=== PATIENT | female | born 1955 | race Caucasian/White ===

== ENCOUNTER 2019-04-19 07:43 | Outpatient (CLI) | payer MEDICARE, BC, SELFPAY ==
--- NOTE | 2019-04-19 08:09 | CT_ITS ---
WS: [id number] CT scan of the chest without IV contrast, additional two-dimensional coronal and sagittal reconstruct ion was performed. 04/19/2019 Clinical Data: PNEUMONIA Comparison: PA and lateral chest, 02/27/2019 DLP: 904.[address] scans at [facility] use at least one of these dose optimization techniques: automat ed exposure control; mA and/or kV adjustment per patient size (includes targeted exams where dose is matched to clinical indication); or iterative reconstruction. Findings: No nodules, masses or effusions are seen. Minimal coronary artery calcification is present. The heart size is normal with no pericardial effusion. The pulmonary arterial system and thoracic aorta demons trate no abnormalities or dilatations. There is no axillary or significant mediastinal adenopathy. No pneumonia or pneumothorax is present. There is a large hiatal hernia. The upper abdomen shows no abnormalities. The bones of the thorax show only minimal osteoarthritic change of the thoracic vertebral bodies. CT/CT chest [facility] [id number] Impression: Negative CT scan of the chest without IV contrast.
== END 2019-04-19 07:44 | disposition home or self-care (01) ==
LOC: RADWPI 07:50
PROVIDERS: Family Provider Family Medicine; PCP Family Medicine; Visit Provider Electrodiagnostic Medicine
DX: J18.9 Pneumonia, unspecified organism (principal)
CPT/HCPCS: 71250

== ENCOUNTER 2019-04-21 09:22 | Inpatient (IN) | payer MEDICARE, BC, SELFPAY ==
[2019-04-21] VITALS (18 sets, daily range): BP systolic 100–160; BP diastolic 59–85; PULSE 18–94; RESP 16–20; TEMP 36.8–37.3; O2SAT 92–100; BMI 31.9
--- NOTE | 2019-04-21 09:48 | ED_ITS ---
Entered by Shon Schwarz, acting as scribe for Zunilda Espinosa DO HPI - Chest Pain General: Chief Complaint: Chest Pain Stated Complaint: chest pains/sob Time Seen by Provider: 04/21/19 09:48 History of Present Illness: HPI narrative: 63 yo female presents with chest pain and shortness of breath. Pt states that she has had shortness of breath for awhile. Pt states that she has had a cold since Thanksiving. Pt states that she can't get dressed without becoming short of breath and have to sit down. pt states that she had a CT done Monday, and an Xray done last month. Pt states that her PCP gave her an inhaler for this issue. Pt states that her inhaler seems to help with the shortness of breath. Pt states that she is out of her inhaler for about a week. Pt states that her legs and feet seem to be swelling more. MD complaint: chest pain Associated symptoms: Reports dyspnea; Deny abdominal pain, diaphoresis, fever(s), nausea, palpitations or vomiting Review of Systems Const: Reports: fatigue; Denies: fever, chills, body aches, change in appetite, change in weight, malaise, night sweats, diaphoresis or change in sleep pattern Eyes: Denies: change in vision, blurry vision, blind spots, photophobia, eye discomfort, eye discharge, eye redness or yellow eyes ENMT: Denies: throat pain, uvular edema, enlarged tonsils or painful swallowing Card: Reports: edema, swelling of feet/ankles and shortness of breath on exertion; Denies: chest pain, palpitations or irregular heart rhythm Resp: Reports: shortness of breath GI: Denies: abdominal pain, nausea, vomiting, vomiting blood, coffee grounds in vomit, difficulty swallowing, heartburn/indigestion, feeling full early, diarrhea, constipation, bloating, cramping, belching or excessive passing of gas : Denies: flank pain, difficulty urinating, painful urination, urinary frequency, urinary urgency, urinary hesitancy, urinary dribbling, nighttime urination, decreased urine ouput or urinary incontinence Musc: Denies: neck pain, back pain, extremity pain, extremity swelling or joint pain Skin/Breast: Denies: rash, itching, redness, sensitivity to light, skin pain or skin tenderness Neuro: Denies: headache, numbness in extremities, weakness in extremities, changes in sensation, lack of coordination or difficulty walking Psych: Denies: anxiety, depression, mood swings, panic attacks or sleeping less Endo: Denies: excessive urination, excessive thirst, tired all the time or cold intolerance Corey/Lymph: Denies: easy bruising, easy bleeding, petechiae or purpura PFSH ED PFSH: Statuses (acute, chronic, etc) shown below reflect problem list status as previously entered and may not be historically accurate Medical History (Updated 04/21/19 @ 11:47 by Zunilda Espinosa DO) Hypercholesterolemia (Acute) Thyroid disease (Acute) Surgical History (Updated 04/21/19 @ 10:01 by Shon Schwarz) H/O knee surgery (Acute) H/O: hysterectomy (Acute) Social History Smoking and tobacco status: never smoked Physical Exam Const: COMMON NORMALS: no apparent distress, average body habitus, oriented x3 and alert EXAM LIMITATIONS: no altered mental status GENERAL APPEARANCE: cooperative and well kempt ORIENTATION/CONSCIOUSNESS: Yes awake, Yes oriented to person, Yes oriented to place and Yes oriented to time; not confused HENMT: COMMON NORMALS: normocephalic HEAD & SCALP: normal to inspection and normocephalic THROAT: no uvular edema Eye: COMMON NORMALS: PERRL PUPIL: Yes PERRL Neck/C-Spine: COMMON NORMALS: full ROM, no lymphadenopathy, supple and no JVD Lymph: LYMPHATIC: no lymphadenopathy noted Chest: COMMONS NORMALS: inspection of chest normal Resp: COMMON NORMALS: normal respiratory effort and clear to auscultation bilaterally AUSCULTATION: clear to auscultation bilaterally Cardio: COMMON NORMALS: no JVD, regular rate and regular rhythm RATE: regular rate RHYTHM: regular rhythm GI: COMMON NORMALS: soft to palpation and non-tender PALPATION: Yes soft : COMMON NORMALS: Yes no CVA tenderness BLADDER/KIDNEY EXAM: Yes no CVA tenderness Back/Pelvis: COMMON NORMALS: no CVA tenderness Extremity: COMMON NORMALS: normal to inspection and full ROM Neuro: COMMON NORMALS: oriented x3 SENSORIUM/ORIENTATION: Yes alert, Yes oriented to person, Yes oriented to place and Yes oriented to time Psych: COMMON NORMALS: mental status grossly normal APPEARANCE: Yes well kempt Skin: COMMON NORMALS: no rashes or lesions noted GENERAL SKIN EXAM: no rashes or lesions noted Course ED course: Patient and family placed in room 16, patient asymptomatic on exam. Reports extreme shortness of breath trying to get ready for latter-day today. Lab, CXR and EKG obtained. We also obtained her CT report dated 04/19/2019 . Her lab reveal a hgb of 7, she was unaware that her hgb was that low, she had been told in the past she was anemic. She reported a normal colonoscopy about 1 and 1/2 years ago. She denied black stools. She has been eating chicken livers to increase her iron I discussed the patient with Dr Malone we will admit to observation, collect stool guaiac, initiate ferrous sulfate po. Vital Signs: Vital signs: Vital Signs Temperature 98.2 F 04/21/19 09:33 Pulse Rate 94 04/21/19 09:33 Respiratory Rate 16 04/21/19 09:33 Blood Pressure 133/85 04/21/19 09:33 Pulse Oximetry 94 04/21/19 09:33 MDM - Chest Pain Lab Data: Labs: Lab Results 04/21/19 04/21/19 04/21/19 Range/Units 10:12 10:12 10:12 WBC 5.8 (4.0-10.0) 10^3/ uL RBC 3.32 L (4.1-5.3) 10^6/u L Hgb 7.0 L (11.5-15.3) g/dL Hct 24.4 L (37.0-47.0) % MCV 73.5 L (81-99) fL MCH 21.1 L (28.0-34.0) pg MCHC 28.7 L (30.0-36.0) g/dL RDW 16.1 H (12.1-15.1) % Plt Count 395 (130-400) 10^3/c mm MPV 10.1 (7.4-10.4) fL Neut % (Auto) 62.9 % Lymph % (Auto) 24.0 % [place] % (Auto) 10.2 % Eos % (Auto) 1.7 % Baso % (Auto) 0.9 % Neut # (Auto) 3.6 (1.8-7.7) 10^3/u L Lymph # (Auto) 1.4 (0.8-4.8) 10^3/u L [place] # (Auto) 0.6 (0.2-0.9) 10^3/u L Eos # (Auto) 0.1 (0.0-0.8) 10^3/u L Baso # (Auto) 0.1 (0.0-0.1) 10^3/u L Nucleated RBC % (a uto) 0 % Nucleated RBCs # 0.0 /100WBC Sodium 137 (136-145) mmol/L Potassium 4.1 (3.5-5.1) mmol/L Chloride 102 (98-107) mmol/L Carbon Dioxide 23 (22-29) mmol/L Anion Gap 16.1 (5-19) BUN 14 (8-23) mg/dL Creatinine 1.0 H (0.5-0.9) mg/dL GFR Calculation 55.6 L (90-130) mL/min Glucose 111 (65-115) mg/dL Calcium 9.7 (8.5-10.5) mg/dL Total Bilirubin 0.3 (0.15-1.2) mg/dL AST 16 (0-32) U/L ALT 19 (0-33) U/L Alkaline Phosphata se 80 (35-105) IU/L Troponin T Baselin e 17 H (0-10) ng/mL NT-Pro-B Natriuret Pep 59 (0-125) pg/mL Total Protein 6.9 (6.6-8.7) g/dL Albumin 4.3 (3.5-5.2) g/dL Globulin 2.6 (1.3-4.6) g/dL Lipase 30 (13-60) U/L EKG Data^: EKG 1: Attestation: I personally reviewed and interpreted this EKG as follows: EKG interpretation date: 04/21/19 EKG interpretation time: 09:56 Interpretation: Normal axis vent rate 92 bpm, sinus rhythm, no st depression/elevation Discharge Plan Discharge Patient Disposition: Placed in Observation Clinical Impression: Anemia Qualifiers: Anemia type: iron deficiency Iron deficiency anemia type: other iron deficiency Qualified Code(s): D50.8 - Other iron deficiency anemias Condition: Stable Referrals: Jimbo Murray MD [Primary Care Provider] - Coding Level of Care Code ED Car Deliverer for Chg Fwd Exam Problem Focused The documentation recorded by the Chong krishna Kialy, accurately reflects the service I personally performed and the decisions made by me, Zunilda Espinosa, DO
--- NOTE | 2019-04-21 09:54 | ECG_ITS ---
Measurements Intervals [place] Rate: 92 P: 20 [place]: 120 QRS: 50 QRSD: 89 T: 20 QT: 336 QTc: 417 SINUS RHYTHM No previous ECG available for comparison Electronically Signed On 04-21-2019 22:23:17 TOOL CRIB CLERK by Flor Olvera M.D. [email or web address]
--- NOTE | 2019-04-21 09:54 | XR_ITS ---
WS: [id number] ONE VIEW CHEST HISTORY: 63 years old Female with chest pain AP upright chest comparison 02/27/2019 FINDINGS: No pneumothorax, pleural effusion, consolidation/atelectasis. Heart size and pulmonary markings are u nremarkable. Moderate hiatal hernia. No subdiaphragmatic free air. No fracture seen. XR/XR chest 1V portable [id number] IMPRESSION: 1. No acute cardiopulmonary findings. 2. Unchanged moderate hiatal hernia.
[2019-04-21 10:25] LABS: Basophils # 0.1 10^3/uL (0.0-0.1); Basophils % 0.9 %; Eosinophils # 0.1 10^3/uL (0.0-0.8); Eosinophils % 1.7 %; Hematocrit 24.4 % (37.0-47.0); Lymphocytes # 1.4 10^3/uL (0.8-4.8); Mean Corpuscular HGB Conc 28.7 g/dL (30.0-36.0); Mean Corpuscular Hemoglobin 21.1 pg (28.0-34.0); Mean Corpuscular Volume 73.5 fL (81-99); Mean Platelet Volume 10.1 fL (7.4-10.4); Monocytes # 0.6 10^3/uL (0.2-0.9); Monocytes % 10.2 %; Neutrophils # 3.6 10^3/uL (1.8-7.7); Neutrophils % 62.9 %; Nucleated Red Blood Cells % 0 %; Platelet Count 395 10^3/cmm (130-400); Red Blood Count 3.32 10^6/uL (4.1-5.3); Red Cell Distribution Width 16.1 % (12.1-15.1); White Blood Count 5.8 10^3/uL (4.0-10.0)
[2019-04-21] MEDS: sodium chloride 0.9% 500 ML 999 ML IV (10:33)
[2019-04-21 10:47] LABS: Troponin(5th) Baseline 17 ng/mL (0-10)
[2019-04-21 10:56] LABS: Alanine Aminotransferase 19 U/L (0-33); Albumin Level 4.3 g/dL (3.5-5.2); Alkaline Phosphatase 80 IU/L (35-105); Anion Gap 16.1 (5-19); Aspartate Amino Transferase 16 U/L (0-32); Blood Urea Nitrogen 14 mg/dL (8-23); Calcium 9.7 mg/dL (8.5-10.5); Carbon Dioxide 23 mmol/L (22-29); Chloride 102 mmol/L (98-107); Globulin 2.6 g/dL (1.3-4.6); Glomerular Filtration Rate 55.6 mL/min (90-130); Glucose 111 mg/dL (65-115); Lipase 30 U/L (13-60); NT Pro B Type Natriuretic Pept 59 pg/mL (0-125); Potassium 4.1 mmol/L (3.5-5.1); Sodium 137 mmol/L (136-145); Total Bilirubin 0.3 mg/dL (0.15-1.2); Total Protein 6.9 g/dL (6.6-8.7)
--- NOTE | 2019-04-21 11:54 | ECG_ITS ---
Measurements Intervals [place] Rate: 73 P: 21 ID: [id number] QRS: 18 QRSD: 93 T: -4 QT: 366 QTc: 405 SINUS RHYTHM NONSPECIFIC T-WAVE ABNORMALITY No previous ECG available for comparison Electronically Signed On 04-21-2019 22:25:48 HOUSE DESIGNER by Flor Olvera M.D. [id number]
[2019-04-21 12:22] LABS: Troponin 5 2HR 21.61 ng/mL (0-10); Troponin 5 2HR Delta 4.61 ABS# (0-10)
--- NOTE | 2019-04-21 13:58 | PM.HP ---
Providers/Chief Complaint Admitting Physician: Wayne James MD Primary Care Provider: Jimbo Murray MD Chief Complaint: chest pains/sob History of Present Illness Sunshine Katz is a 63 year old female with past medical history of hypercholesterolemia, hypothyroidism, anemia who presents to the ER today with worsening shortness of breath, tiredness for last 2 months acutely worsened over last 2 weeks. Patient states for last 2 weeks she gets out of breath along with dizziness and palpitations even when she is trying to dress herself. She states she had a recent blood work done at her PCPs office which showed she was anemic but she is not really sure what is her hemoglobin numbers at that time. She is not aware of her baseline hemoglobin. Denies of having bleeding in her bowel movements, hematemesis, melena, hematochezia, epistaxis. She states she had a colonoscopy last year and it was reported normal. She is on baby aspirin at home and takes some [id number] pain medications once or twice a week. She denies of having any heartburn, nausea, changes in her bowel movement, flulike symptoms, chest pain, loss of consciousness, falls, orthopnea, paroxysmal nocturnal dyspnea, swelling in her lower limbs. But does complain has been having occasional cough for which she had a CT chest done earlier this week. At present she denies of having any fever, runny nose, PND. Review of Systems Const: Denies: fever, chills, body aches, change in appetite, malaise, night sweats, diaphoresis, change in sleep pattern, daytime sleepiness or snoring Eyes: Denies: change in vision, blurry vision, photophobia, eye discomfort or eye discharge ENMT: Denies: throat pain, enlarged tonsils, hoarseness, mouth pain, oral sores/lesions, dry mouth, tinnitus, nasal congestion or post nasal drip Card: Reports: palpitations, lightheadedness and shortness of breath on exertion; Denies: chest pain, irregular heart rhythm, edema, swelling of feet/ankles, syncope, pre-syncope, shortness of breath when lying down, leg pain with exertion or bluish discoloration of hands/feet Resp: Reports: shortness of breath and non-productive cough; Denies: productive cough, wheezing, stridor, pain on inspiration, change in phlegm color, coughing up blood or chest congestion GI: Denies: abdominal pain, nausea, vomiting, vomiting blood, coffee grounds in vomit, difficulty swallowing, heartburn/indigestion, diarrhea, constipation, bloating, cramping, change in bowel habits, painful bowel movements, blood in stool or black tarry stool : Denies: flank pain, painful urination, urinary frequency, urinary urgency, urinary hesitancy, nighttime urination or blood in urine Musc: Denies: neck pain, back pain, extremity pain, joint pain, joint swelling, redness, joint stiffness or limited range of motion Neuro: Denies: headache, numbness in extremities, weakness in extremities, changes in sensation, lack of coordination, difficulty walking, frequent falls, dizziness, vertigo, confusion, slurred speech, difficulty communicating thoughts or seizure-like activity Psych: Denies: anxiety, depression, mood swings, panic attacks, hopelessness or irritability Endo: Denies: excessive urination, excessive thirst, tired all the time, cold intolerance, excessive sweating, flushing or heat intolerance Corey/Lymph: Denies: easy bruising or easy bleeding All/Imm: Denies: tongue swelling, facial swelling or acute wheezing Medications/Allergies Home Medications Medication Instructions Recorded Confirmed Last Taken Type albuterol sulfate 2 puff INHALATION Q4H PRN 04/21/19 04/21/19 04/21/19 History aspirin 81 mg PO DAILY 04/21/19 04/21/19 04/21/19 History atorvastatin 20 mg PO DAILY 04/21/19 04/21/19 04/21/19 History citalopram 40 mg PO DAILY 04/21/19 04/21/19 04/21/19 History levothyroxine 50 mcg PO DAILY 04/21/19 04/21/19 04/21/19 History Allergies Allergy/AdvReac Type Severity Reaction Status Date / Time No Known Allergies Allergy Verified 04/21/19 09:38 PFSH Acute PFSH: Statuses (acute, chronic, etc) shown below reflect problem list status as previously entered and may not be historically accurate Medical History (Updated 04/21/19 @ 14:03 by Wayne James MD) Hypercholesterolemia (Acute) Thyroid disease (Acute) Surgical History (Updated 04/21/19 @ 10:01 by Shon Schwarz) H/O knee surgery (Acute) H/O: hysterectomy (Acute) Social History (Updated 04/21/19 @ 14:02 by Wayne James MD) Smoking and tobacco status: never smoked Alcohol intake: never Substance/Drug Use: never Household members: family Housing: House Vitals/I&O/Wt Last Vital Signs Temp 98.5 F 04/21/19 13:09 Pulse 86 04/21/19 13:09 Resp 18 04/21/19 13:09 BP 160/79 04/21/19 13:09 Pulse Ox 100 04/21/19 13:09 Weight last 48 hrs Weight 84.368 kg Physical Exam Narrative: EXAM NARRATIVE: General: No acute distress, AO x3, pallor present HEENT: PERRLA, pupils bilaterally equal and reactive Chest: Normal vesicular breath sounds, no added sounds, equal good air entry bilaterally CVS: S1-S2 regular, no murmurs, no tachycardia, no gallops, no rubs Abdomen: Soft, mild epigastric tender, no organomegaly, bowel sounds present Neuro: No focal deficits, no facial deformity, AO x3, power 5/5 in all limbs Data : 04/21/19 10:12 04/21/19 10:12 A&P Assessment and plan (1) Anemia: Status: Acute Qualifiers: Anemia type: iron deficiency Iron deficiency anemia type: other iron deficiency Qualified Code(s): D50.8 - Other iron deficiency anemias Code(s): D64.9 - Anemia, unspecified (2) Hypercholesterolemia: Status: Acute Code(s): E78.00 - Pure hypercholesterolemia, unspecified (3) Thyroid disease: Status: Acute Code(s): E07.9 - Disorder of thyroid, unspecified (4) Shortness of breath: Status: Acute Code(s): R06.02 - Shortness of breath Additional A&P Information Shortness of breath/dizziness: Most likely due to anemia. Hemoglobin today 7. We do not have any baseline hemoglobin in the system. We will check iron panel. We will transfuse 1 unit of PRBC in view of symptomatic anemia. We will check vitamin B12 and folic acid levels. Stool for occult blood check. If she is having stool for occult blood positive will consult surgery for possible colonoscopy and endoscopy. Protonix 40 mg daily. We will hold off on aspirin for now. proBNP negative. Troponins at baseline 17, at 2 hours 21 with a delta of 4 which is not significant. In view of severe symptoms with hemoglobin of 7 patient would most likely need cardiac stress test as an outpatient to rule out cardiac ischemia. At present patient does not have any symptoms suggestive of active ACS. Continue with home dose of levothyroxine and atorvastatin. Full code Regular diet. SCDs for DVT prophylaxis. No pharmacological DVT prophylaxis in view of severe anemia. Attestations Medical Necessity Statement*: Needs admission for most likely less than 2 midnights for symptomatic anemia. Time Spent in Patient Care: 16 - 35 minutes Coding Level of Care Code Acute Ergonomics Engineer for Chg Fwd Diagnoses Anemia D50.8 Anemia type: iron deficiency Iron deficiency anemia type: other iron deficiency Hypercholesterolemia E78.00 Thyroid disease E07.9 Shortness of breath R06.02
--- NOTE | 2019-04-21 15:02 | PC.CHAP ---
Pastoral Care Encounter/Spiritual Assessment Type of Contact [] Declined acoustical tile drill press operator visit [] Patient/Family/Request visit [] Outpatient visit [] Follow-up visit [] Physician referral [] Code/Alert [] Routine visit [] Staff referral [] Actively dying [] Patient sleeping [] Family support [] [] Out of room [] Palliative care [] [] Receiving care in room [] Pre-surgical visit [] Trauma [] Long length of stay [] ICU visit [] Other: Relational/Emotional Strength [] Patient feels connected with others/family/visitors/staff [] Distress [] Loneliness/isolation [] Abandonment Spirituality of Patient [] Person of [place] [] Attends Yarsani of their [place] [] Believes in Prayer [] Reads Bible or Buddhism materials [] There are Spiritual issues to be addressed Enterprise Project Manager Interventions [] Prayer [] Active listening [] Non-anxious presence [] Spiritual/emotional support [] Crisis/trauma care [] Spiritual counseling [] Bereavement support [] Provided bereavement packet [] Provided Bible/devotional materials [] Provided toy/stuffed animal, coloring book to patient or family member [] Provided Communion [] Anointing/[place] [] Salvation [] Completed spiritual assessment [] Other: Impact on Illness or Injury [] Angry [] Fearful [] Anxious [] Often cries [] Exhaustion [] Unable to work [] Unable to attend muslim [] Unable to walk/stand [] Unable to read [] Unable to drive [] Unable to eat/drink [] Unable to sleep [] Unable to be with family [] Patient intubated [] Other: Summary Time spent with patient
[2019-04-21 15:04] LABS: Iron 14 ug/dL (37-145); Percent Saturation 3.6 % (20-50); Thyroid Stimulating Hormone 1.63 uIU/mL (0.27-4.20); Total Iron Binding Capacity 379 mcg/dl; Unsaturated Iron Binding 365 ug/dL (112-347); Vitamin B12 358 pg/mL (232-1245)
--- NOTE | 2019-04-21 15:54 | ECG_ITS ---
Measurements Intervals [place] Rate: 73 P: 15 [place]: 161 QRS: 12 QRSD: 90 T: -4 QT: 384 QTc: 426 SINUS RHYTHM NONSPECIFIC T-WAVE ABNORMALITY No previous ECG available for comparison Electronically Signed On 04-21-2019 22:25:39 MANAGER SOURCING by Flor Olvera M.D. [id number]
[2019-04-21] MEDS: albuterol 8 gm MDI 2 PUFF INHALATION (16:22)
[2019-04-21 16:50] LABS: Folate Level 15.2 ng/mL (4.8-37.3)
[2019-04-21 17:16] LABS: Troponin 5 6HR 13.64 ng/L (0-10)
[2019-04-21 17:24] LABS: Troponin 5 6HR Delta -3.36 ng/L (0-12)
[2019-04-21] MEDS: ferrous sulfate EC 325 mg Tablet PO (18:27)
[2019-04-21] MEDS: sodium chloride 0.9% 200 ML 150 ML (18:28)
[2019-04-22] VITALS: BP 119/73; PULSE 72; RESP 18; TEMP 37; O2SAT 92
[2019-04-22 05:29] VITALS: BP 146/77; PULSE 77; RESP 20; TEMP 36.7
[2019-04-22 06:34] LABS: Estmated Average Glucose 120; Hemoglobin A1C 5.8 % (4.0-6.0)
[2019-04-22 06:38] LABS: Chol HDL Ratio 2.92 mg/dL (0.0-4.40); Cholesterol 172 mg/dL (0-200); HDL Cholesterol 59 mg/dL (60-100); LDL Cholesterol Calculated 92 mg/dL (50-129); Triglycerides 104 mg/dL (0-150); VLDL Cholestrol Calculation 21 mg/dL (0-30)
[2019-04-22 07:10] VITALS: BP 121/74; PULSE 78; RESP 18; TEMP 36.7; O2SAT 93
[2019-04-22 08:13] LABS: Basophils # 0.1 10^3/uL (0.0-0.1); Basophils % 0.8 %; Eosinophils # 0.1 10^3/uL (0.0-0.8); Eosinophils % 2.1 %; Hematocrit 29.4 % (37.0-47.0); Hemoglobin 8.9 g/dL (11.5-15.3); Lymphocytes # 1.8 10^3/uL (0.8-4.8); Lymphocytes % 26.5 %; Mean Corpuscular HGB Conc 30.3 g/dL (30.0-36.0); Mean Corpuscular Hemoglobin 21.8 pg (28.0-34.0); Mean Corpuscular Volume 71.9 fL (81-99); Mean Platelet Volume 10.3 fL (7.4-10.4); Monocytes # 0.6 10^3/uL (0.2-0.9); Monocytes % 9.1 %; Neutrophils % 61.2 %; Nucleated Red Blood Cells % 0 %; Platelet Count 353 10^3/cmm (130-400); Red Blood Count 4.09 10^6/uL (4.1-5.3); Red Cell Distribution Width 16.7 % (12.1-15.1); White Blood Count 6.6 10^3/uL (4.0-10.0)
[2019-04-22] MEDS: albuterol 8 gm MDI 2 PUFF INHALATION (08:23)
[2019-04-22 08:25] VITALS: PULSE 68; RESP 16; O2SAT 97
[2019-04-22] MEDS: levothyroxine 50 mcg Tablet PO (08:36)
[2019-04-22] MEDS: citalopram 20 mg Tablet 40 MG PO (08:37)
[2019-04-22] MEDS: ferrous sulfate EC 325 mg Tablet PO (08:37)
[2019-04-22] MEDS: atorvastatin 40 mg Tablet 20 MG PO (08:37)
--- NOTE | 2019-04-22 09:36 | P.DS_ITS ---
Discharge Providers Date of Admission: 04/21/19 13:09 Date of Discharge: April 22, 2019 Attending Provider at Admission: Wayne James MD Attending Provider at Discharge: Jimbo Murray MD Primary Care Provider: Jimbo Murray MD Diagnoses at Discharge Discharge Diagnosis (1) Anemia: Status: Acute Qualifiers: Anemia type: iron deficiency Iron deficiency anemia type: other iron deficiency Qualified Code(s): D50.8 - Other iron deficiency anemias (2) Hypercholesterolemia: Status: Acute (3) Thyroid disease: Status: Acute (4) Shortness of breath: Status: Acute Reason for Visit Reason for Visit: Reason For Visit: chest pains/sob Hospital Course Hospital Course: Admitted for increased weakness. Had Hgb of 7. Tranfused 1 unit. Symptoms improved. Hgb up to 8.9. Neg colonoscopy 1-2 years ago. No obvious blood loss. Labs showed iron def. Will evaluate more in clinic. Discharge Data Data Completed and Pending: Completed Studies During Hospitalization Category Date Time Status XR chest 1V ashli ble [id number] Stat Exams 04/21/19 09:54 Completed Labs from last 24 hours 04/22/19 04/22/19 04/22/19 06:08 06:08 06:08 WBC 6.6 RBC 4.09 L Hgb 8.9 L Hct 29.4 L MCV 71.9 L MCH 21.8 L MCHC 30.3 D RDW 16.7 H Plt Count 353 MPV 10.3 Neut % (Auto) 61.2 Lymph % (Auto) 26.5 [place] % (Auto) 9.1 Eos % (Auto) 2.1 Baso % (Auto) 0.8 Neut # (Auto) 4.0 Lymph # (Auto) 1.8 [place] # (Auto) 0.6 Eos # (Auto) 0.1 Baso # (Auto) 0.1 Nucleated RBC % (a uto) 0 Nucleated RBCs # 0.0 Sodium Potassium Chloride Carbon Dioxide Anion Gap BUN Creatinine GFR Calculation Glucose Estimat Average Gl ucose 120 Hemoglobin A1c 5.8 Calcium Iron TIBC % Saturation Unsat Iron Binding Total Bilirubin AST ALT Alkaline Phosphata se Troponin I 6 Hour Troponin I Hi Sens Del Troponin T Baselin e Troponin T 120 Min [place] Delta Troponin T NT-Pro-B Natriuret Pep Total Protein Albumin Globulin Triglycerides 104 Cholesterol 172 LDL Cholesterol, C alc 92 Total VLDL Cholest delbert 21 HDL Cholesterol 59 L Cholesterol/HDL Ra demetrice 2.92 Lipase Vitamin B12 Folate TSH Blood Type Antibody Screen Crossmatch 04/21/19 04/21/19 04/21/19 16:30 11:57 11:57 WBC RBC Hgb Hct MCV MCH MCHC RDW Plt Count MPV Neut % (Auto) Lymph % (Auto) [place] % (Auto) Eos % (Auto) Baso % (Auto) Neut # (Auto) Lymph # (Auto) [place] # (Auto) Eos # (Auto) Baso # (Auto) Nucleated RBC % (a uto) Nucleated RBCs # Sodium Potassium Chloride Carbon Dioxide Anion Gap BUN Creatinine GFR Calculation Glucose Estimat Average Gl ucose Hemoglobin A1c Calcium Iron TIBC % Saturation Unsat Iron Binding Total Bilirubin AST ALT Alkaline Phosphata se Troponin I 6 Hour 13.64 H Troponin I Hi Sens Del -3.36 L Troponin T Baselin e Troponin T 120 Min [place] 21.61 H Delta Troponin T 4.61 NT-Pro-B Natriuret Pep Total Protein Albumin Globulin Triglycerides Cholesterol LDL Cholesterol, C alc Total VLDL Cholest delbert HDL Cholesterol Cholesterol/HDL Ra demetrice Lipase Vitamin B12 Folate TSH Blood Type O Positive Antibody Screen Negative Crossmatch See Detail 04/21/19 04/21/19 04/21/19 10:12 10:12 10:12 WBC RBC Hgb Hct MCV MCH MCHC RDW Plt Count MPV Neut % (Auto) Lymph % (Auto) [place] % (Auto) Eos % (Auto) Baso % (Auto) Neut # (Auto) Lymph # (Auto) [place] # (Auto) Eos # (Auto) Baso # (Auto) Nucleated RBC % (a uto) Nucleated RBCs # Sodium Potassium Chloride Carbon Dioxide Anion Gap BUN Creatinine GFR Calculation Glucose Estimat Average Gl ucose Hemoglobin A1c Calcium Iron 14 L TIBC 379 % Saturation 3.6 L Unsat Iron Binding 365 H Total Bilirubin AST ALT Alkaline Phosphata se Troponin I 6 Hour Troponin I Hi Sens Del Troponin T Baselin e 17 H Troponin T 120 Min [place] Delta Troponin T NT-Pro-B Natriuret Pep Total Protein Albumin Globulin Triglycerides Cholesterol LDL Cholesterol, C alc Total VLDL Cholest delbert HDL Cholesterol Cholesterol/HDL Ra demetrice Lipase Vitamin B12 358 Folate 15.2 TSH 1.63 Blood Type Antibody Screen Crossmatch 04/21/19 04/21/19 10:12 10:12 WBC 5.8 RBC 3.32 L Hgb 7.0 L Hct 24.4 L MCV 73.5 L MCH 21.1 L MCHC 28.7 L RDW 16.1 H Plt Count 395 MPV 10.1 Neut % (Auto) 62.9 Lymph % (Auto) 24.0 [place] % (Auto) 10.2 Eos % (Auto) 1.7 Baso % (Auto) 0.9 Neut # (Auto) 3.6 Lymph # (Auto) 1.4 [place] # (Auto) 0.6 Eos # (Auto) 0.1 Baso # (Auto) 0.1 Nucleated RBC % (a uto) 0 Nucleated RBCs # 0.0 Sodium 137 Potassium 4.1 Chloride 102 Carbon Dioxide 23 Anion Gap 16.1 BUN 14 Creatinine 1.0 H GFR Calculation 55.6 L Glucose 111 Estimat Average Gl ucose Hemoglobin A1c Calcium 9.7 Iron TIBC % Saturation Unsat Iron Binding Total Bilirubin 0.3 AST 16 ALT 19 Alkaline Phosphata se 80 Troponin I 6 Hour Troponin I Hi Sens Del Troponin T Baselin e Troponin T 120 Min [place] Delta Troponin T NT-Pro-B Natriuret Pep 59 Total Protein 6.9 Albumin 4.3 Globulin 2.6 Triglycerides Cholesterol LDL Cholesterol, C alc Total VLDL Cholest delbert HDL Cholesterol Cholesterol/HDL Ra demetrice Lipase 30 Vitamin B12 Folate TSH Blood Type Antibody Screen Crossmatch Vitals: Last Vital Signs Temp 98.1 F 04/22/19 07:10 Pulse 68 04/22/19 08:25 Resp 16 04/22/19 08:25 BP 121/74 04/22/19 07:10 Pulse Ox 97 04/22/19 08:25 Discharge Plan Discharge Patient Disposition: Home, Self-Care Condition: Stable Prescriptions: New ferrous sulfate 325 mg (65 mg iron) Tablet,Delayed Release (Dr/Ec) 325 mg PO BIDWM Qty: 60 RF: 0 Continued atorvastatin 20 mg tablet 20 mg PO DAILY RF: 0 citalopram 40 mg tablet 40 mg PO DAILY RF: 0 levothyroxine 50 mcg tablet 50 mcg PO DAILY RF: 0 aspirin 81 mg Tablet,Chewable 81 mg PO DAILY RF: 0 albuterol sulfate 90 mcg/actuation HFA aerosol inhaler 2 puff INHALATION Q4H PRN (Reason: Shortness Of Breath) RF: 0 Discharge Orders: Discharge Order (Routine); Ordered 04/22/19 Ordered By: Jimbo Murray Referrals: Jimbo Murray MD [Primary Care Provider] - Discharge Diet: Advance as tolerated Discharge Activity: Resume usual activity Patient Instructions: Iron Rich Diet (GEN), Anemia (GEN) Activity Restrictions/Additional Instructions: - Call if worsening fatigue. - Follow up with Dr. Murray later this week. - take iron tabs above twice a day. - resume all of your home meds the same Discharge Attestations Time Spent in Discharge Care*: greater than 30 min Quality Metrics Clinical Quality Measures During this hospital stay, did patient experience: None Coding Level of Care Code Acute Jet Handler for Chg Fwd Diagnoses Anemia D50.8 Anemia type: iron deficiency Iron deficiency anemia type: other iron deficiency Hypercholesterolemia E78.00 Thyroid disease E07.9 Shortness of breath R06.02
[2019-04-22 09:37] VITALS: BP 121/74; RESP 16; TEMP 36.7; O2SAT 97
--- NOTE | 2019-04-22 10:19 | PC.CHAP ---
Pastoral Care Encounter/Spiritual Assessment Type of Contact [] Declined team assistant visit [] Patient/Family/Request visit [] Outpatient visit [] Follow-up visit [] Physician referral [] Code/Alert [x] Routine visit [] Staff referral [] Actively dying [] Patient sleeping [] Family support [] [] Out of room [] Palliative care [] [] Receiving care in room [] Pre-surgical visit [] Trauma [] Long length of stay [] ICU visit [] Other: Relational/Emotional Strength [x] Patient feels connected with others/family/visitors/staff [] Distress [] Loneliness/isolation [] Abandonment Spirituality of Patient [x] Person of [place] [] Attends Catholic of their [place] [x] Believes in Prayer [] Reads Bible or Restoration materials [] There are Spiritual issues to be addressed Med Spec Interventions [x] Prayer [x] Active listening [x] Non-anxious presence [x] Spiritual/emotional support [] Crisis/trauma care [] Spiritual counseling [] Bereavement support [] Provided bereavement packet [] Provided Bible/devotional materials [] Provided toy/stuffed animal, coloring book to patient or family member [] Provided Communion [] Anointing/[place] [] Salvation [x] Completed spiritual assessment [] Other: Impact on Illness or Injury [] Angry [] Fearful [] Anxious [] Often cries [] Exhaustion [] Unable to work [] Unable to attend nondenominational [] Unable to walk/stand [] Unable to read [] Unable to drive [] Unable to eat/drink [] Unable to sleep [] Unable to be with family [] Patient intubated [] Other: Summary Pt is being discharged as soon as relative arrives. dPt states she feels great now but got no sleep during night due to so many tests being done. Time spent with patient 7 minutes
--- NOTE | 2019-04-24 11:01 | P.EN_ITS ---
Event Note Event Note: Sunshine Katz : 1955 History of Present Illness Chief Complaint: Patient presents for a hospital follow up. Patient is here for a hospital follow up. Medications reviewed today and reconciled. Seems to be doing better. Was hospitalized for anemia and presumed GI bleed. More energy, no chest pain. Has not noticed any bllod in stool or urine. had prednisone few weeks ago for persistent cough. Hospital Course Hospital Course: Admitted for increased weakness. Had Hgb of 7. Tranfused 1 unit. Symptoms improved. Hgb up to 8.9. Neg colonoscopy 1-2 years ago. No obvious blood loss. Labs showed iron def. Will evaluate more in clinic. Current Medications: CURRENT MEDS: FERROUS SULFATE 325 (65 FE) MG ORAL TABLET (FERROUS SULFATE) 1 tab twice a day for anemia PROAIR HFA 108 (90 BASE) MCG/ACT INHALATION AEROSOL SOLUTION (ALBUTEROL SULFATE) inhale 2 puffs q 4 hrs occasionally as needed SOB, Wheezing LEVOTHYROXINE SODIUM 50 MCG ORAL TABLET (LEVOTHYROXINE SODIUM) 1 tab once a day CELEXA 40 MG ORAL TABLET (CITALOPRAM HYDROBROMIDE) 1 tab once a day LIPITOR 20 MG ORAL TABLET (ATORVASTATIN CALCIUM) 1 tab once a day ASPIRIN 81 MG ORAL TABLET (ASPIRIN) 1 tab once a day Allergies: NONE (Critical) Preventive: CHOLESTEROL: 182 (02/27/2018 7:29:00 AM) COLONOSCOPY: normal this year (12/10/2018 2:53:57 PM) - Dr Acevedo. BONE DENSITY: PAP SMEAR: not needed - all normal (02/28/2018 7:45:41 AM) MAMMOGRAM: normal in August (12/10/2018 2:53:57 PM) Flu: DTAP: 05/2018 (02/27/2019 9:38:08 AM) PNEUMOVAX: PREVNAR 13: done this year in (12/10/2018 2:53:57 PM) ZOSTAVAX: done 2017. (12/10/2018 2:53:57 PM) Past, Family, and Social History Past History (reviewed - no changes required): PAST MEDICAL HISTORY: Hypertension; Hyperlipidemia; gerd PAST SURGICAL HISTORY: CHANI and BSO age 49 for fibroids; right meniscus tear repair 04/2014. Family History (reviewed - no changes required): dad had Diabetes Mellitus type 2; Coronary Artery Disease in his 70's. mom had breast cancer in her 70's. 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 No smoking, no alcohol Physical Exam: Previous Weight: 196 (04/09/2019 4:52:37 PM) Vital Signs: Patient Profile: 63 Years Old Female Height: 64 inches Weight: 192 pounds BMI: 32.95 O2 Sat: 96 % Temp: 98.1 degrees F oral Pulse rate: 88 / minute Resp: 20 per minute BP sittin / 75 Constitutional: Alert, no acute distress, well hydrated, well developed, well nourished. Skin: Normal turgor, normal color, no rashes, no lesions, no unusual bruising. Cardiovascular: RRR, no murmurs, no gallops, peripheral pulses intact, no edema. Respiratory: No respiratory distress, no accessory muscle use, clear to auscul tation. Abdomen: nondistended, nontender, normal BS, no hepatosplenomegaly, no hernias. Neurol: station & gait normal. Psych: Oriented to all spheres, affect normal. Problem Assessment - iron def anemia - acute - ? etiology. had colonoscopy last year was normal. Recheck hgb today and cont iron tabs. refer for EGD. May need to see Dr. Barajas if this persists. - Return to clinic in 2 weeks for a recheck, cbc then. Assessment New Problems: Anemia (ICD-285.9) (IBP43-L91.9) Plan New Prescriptions/Refills: FERROUS SULFATE 325 (65 FE) MG ORAL TABLET (FERROUS SULFATE) 1 tab twice a day for anemia #60 Undefined x 11, 04/24/2019, Jimbo Murray MD Updated Medication List: FERROUS SULFATE 325 (65 FE) MG ORAL TABLET (FERROUS SULFATE) 1 tab twice a day for anemia PROAIR HFA 108 (90 BASE) MCG/ACT INHALATION AEROSOL SOLUTION (ALBUTEROL SULFATE) inhale 2 puffs q 4 hrs occasionally as needed SOB, Wheezing LEVOTHYROXINE SODIUM 50 MCG ORAL TABLET (LEVOTHYROXINE SODIUM) 1 tab once a day CELEXA 40 MG ORAL TABLET (CITALOPRAM HYDROBROMIDE) 1 tab once a day LIPITOR 20 MG ORAL TABLET (ATORVASTATIN CALCIUM) 1 tab once a day ASPIRIN 81 MG ORAL TABLET (ASPIRIN) 1 tab once a day New Orders: Transitional Care Code - Mod [83417] CBC w/auto diff WBC [CPT-35440] Prescriptions: FERROUS SULFATE 325 (65 FE) MG ORAL TABLET (FERROUS SULFATE) 1 tab twice a day for anemia #60 Undefined x 11 Entered and Authorized by: Jimbo Murray MD Method used: Historical RxID: [id number]
== END 2019-04-22 10:42 | disposition home or self-care (01) | DRG 313 ==
LOC: ER 11:47 → MEDSURG 04-22 07:13
PROVIDERS: Admitting Provider Student in an Organized Health Care Education/Training Program; Emergency Provider Emergency Medicine Emergency Medical Services; Family Provider Family Medicine; PCP Family Medicine; Visit Provider Family Medicine
DX: R07.89 Other chest pain (principal); D50.8 Other iron deficiency anemias; E78.00 Pure hypercholesterolemia, unspecified; Z79.82 Long term (current) use of aspirin; E03.9 Hypothyroidism, unspecified
CPT/HCPCS: 12345; 36415; 36430; 71045; 71250; 80053; 80061; 82274; 82607; 82746; 83036; 83540; 83550; 83690; 83880; 84443; 84484; 85025; 86850; 86900; 93005; 94640; 99283; G0378; J3535; J7040; P9016

== ENCOUNTER 2019-07-25 08:26 | Day surgery (SDC) | payer MEDICARE, BC, SELFPAY ==
[2019-07-24 09:47] VITALS: BMI 32.4
[2019-07-25 08:48] VITALS: BP 178/103; PULSE 72; RESP 18; TEMP 36.6; O2SAT 95
--- NOTE | 2019-07-25 09:09 | ANES.PREANE2 ---
Pre-Anesthetic Assessment Pre-Anesthetic Assessment: Height/Weight: Height 1.63 m Weight 85.729 kg Temp Pulse Resp BP Pulse Ox 97.9 F 72 18 178/103 95 07/25/19 08:48 07/25/19 08:48 07/25/19 08:48 07/25/19 08:48 07/25/19 08:48 Preop Diagnosis: Anemia Proposed Procedure: Operation Date: 07/25/19 10:10 Proposed Procedures p EGD 06035 D64.9 Anemia(Not Applicable) - Haroldo Negron MD Last intake: Intake Last Liquid Date 07/24/19 Last Liquid Time 23:00 Last Solid Date 07/24/19 Last Solid Time 23:00 Social: Social History: No alcohol and No tobacco Exam: Pre-Anes Outpt Exam: alert, oriented x 3, clear to auscultation bilaterally and regular rate & rhythm Airway: Submandibular: WNL Cervical ROM: WNL MP: 2 Dentition: Partials (upper) History/ROS: No significant history except as noted Pulmonary: Pulmonary: Cough CV/HEM: CV/HEM: None reported : : None reported Hepatic: Hepatic: None reported GI: GI: GERD (occ) Metabolic: Metabolic: Hyperlipidemia and Thyroid Musc/skel: Musc/skel: OA/DJD Neuropsych: Neuropsych: None reported Anesthetic Plan: ASA status: 2 Anesthesia: Anesthesia Evaluation and MAC Risk of > 500 ml blood loss (7ml/kg in children): No PFSH Anesthesia PFSH: Medical History Hypercholesterolemia Thyroid disease Surgical History H/O knee surgery H/O: hysterectomy History of colonoscopy (~2019) normal- dr. negron Social History Smoking and tobacco status: never smoked Alcohol intake: never Household members: family Housing: House Data Anesthesia Cardiac Studies: No Data to Display
[2019-07-25] MEDS: sodium chloride 0.9% 1,000 ML 100 ML IV (09:10)
[2019-07-25] MEDS: scopolamine 1.5 Patch 1 PATCH TRANSDERMA (09:11)
--- NOTE | 2019-07-25 10:42 | W.PM.OPSFHP ---
Same Day Surgery H&P Indication for Procedure/HPI DATE OF PROCEDURE: July 25, 2019 CHIEF COMPLAINT/INDICATIONFOR SURGICAL PROCEDURE: anemia PREOP DIAGNOSIS: Anemia PLANNED PROCEDRUE: Operation Date: 07/25/19 10:10 Proposed Procedures p EGD 41259 D64.9 Anemia(Not Applicable) - Haroldo Negron MD Medications/Allergies* Home Medications Medication Instructions Recorded Confirmed Type albuterol sulfate 2 puff INHALATION Q4H PRN 04/21/19 07/25/19 History atorvastatin 20 mg PO DAILY 04/21/19 07/25/19 History citalopram 40 mg PO DAILY 04/21/19 07/25/19 History levothyroxine 50 mcg PO DAILY 04/21/19 07/25/19 History Allergies/Adverse Reactions Allergy/AdvReac Type Severity Reaction Status Date / Time No Known Allergies Allergy Verified 04/29/19 16:18 Current Medications: Generic Name Dose Route Start Last Admin Trade Name Freq PRN Reason Stop Dose Admin Sodium Chloride 1,000 mls @ 100 mls/hr 07/25/19 09:15 07/25/19 09:10 Sodium Chloride 0.9% IV 07/26/19 09:14 100 mls/hr .Q10H SANCHEZ Administration Pertinent History/Comorbid Conditions* Medical History (Updated 04/21/19 @ 14:03 by Wayne James MD) Hypercholesterolemia Thyroid disease Surgical History (Updated 04/29/19 @ 16:36 by Haroldo Negron MD) H/O knee surgery H/O: hysterectomy History of colonoscopy (~2018) normal- dr. negron Social History Smoking and tobacco status: never smoked Alcohol intake: never Household members: family Housing: House Pertinent Exam Findings alert, oriented x 3 and regular rate & rhythm Recommendations Surgery/Procedure today Coding Level of Care Code Acute Address Change Clerk for Chg Bairon
[2019-07-25 11:07] VITALS: BP 154/104; PULSE 80; RESP 16; TEMP 36.1; O2SAT 80
[2019-07-25 11:25] VITALS: BP 131/107; PULSE 70; RESP 18; TEMP 36.3; O2SAT 97
== END 2019-07-25 12:33 | disposition home or self-care (01) ==
PROVIDERS: PCP Family Medicine; Visit Provider Surgery
PROC: 0DJ08ZZ Inspection of Upper Intestinal Tract, Via Natural or Artificial Opening Endoscopic (ICD-10-PCS; CPT 43235; principal; 2019-07-25 10:05)
DX: D50.9 Iron deficiency anemia, unspecified (principal); K29.70 Gastritis, unspecified, without bleeding; K21.9 Gastro-esophageal reflux disease without esophagitis; M19.90 Unspecified osteoarthritis, unspecified site
CPT/HCPCS: 12345; 43235; J2001; J2704; J7030

== ENCOUNTER 2019-09-19 09:02 | Outpatient (CLI) | payer MEDICARE, BC, SELFPAY ==
--- NOTE | 2019-09-19 09:15 | MM_ITS ---
WS: [id number] BILATERAL DIGITAL SCREENING MAMMOGRAPHY WITH CAD CLINICAL INFORMATION: SCREENING HISTORY: Screening mammogram. No current complaints. COMPARISON: TECHNIQUE: Bilateral CC and MLO views. FINDINGS: The breasts are composed of heterogeneous fibroglandular density tissue, which can limit the detectio n of small underlying mass lesions. No suspicious mass, asymmetry, calcifications, or architectural d istortion. No evidence of malignancy. Punctate and lucent centered calcifications. MM/[id number] IMPRESSION: BI-RADS: 2-Benign FOLLOW UP: 1 Year Follow-up Recommend return to annual screening mammography.
== END 2019-09-19 09:03 | disposition home or self-care (01) ==
LOC: RADSHAW 09:07
PROVIDERS: PCP Family Medicine; Visit Provider Family Medicine
DX: Z12.31 Encounter for screening mammogram for malignant neoplasm of breast (principal)
CPT/HCPCS: 77067

== ENCOUNTER 2020-10-26 08:13 | Outpatient (CLI) | payer MEDICARE, BC, SELFPAY ==
--- NOTE | 2020-10-26 08:21 | MM_ITS ---
WS: [id number] BILATERAL DIGITAL SCREENING MAMMOGRAPHY WITH CAD CLINICAL INFORMATION: SCREENING HISTORY: Screening mammogram. No current complaints. COMPARISON: September 19, 2019 TECHNIQUE: Bilateral CC and MLO views. FINDINGS: The breasts are composed of heterogeneous fibroglandular density tissue, which can limit the detectio n of small underlying mass lesions. Punctate and lucent centered calcifications. Asymmetries upper ou ter left breast stable compared to 2016. No suspicious mass, asymmetry, calcifications, or architectu ral distortion. No evidence of malignancy. MM/[id number] IMPRESSION: BI-RADS: 2-Benign FOLLOW UP: 1 Year Follow-up Recommend return to annual screening mammography.
== END 2020-10-26 08:14 | disposition home or self-care (01) ==
LOC: RADSHAW 08:19
PROVIDERS: PCP Family Medicine; Visit Provider Family Medicine
DX: Z12.31 Encounter for screening mammogram for malignant neoplasm of breast (principal)
CPT/HCPCS: 77067

== ENCOUNTER 2021-04-30 12:34 | Emergency (ER) | payer MEDICARE, BC, SELFPAY ==
[2021-04-30 12:42] VITALS: BP 167/78; PULSE 86; RESP 18; TEMP 36.5; O2SAT 97; BMI 33.5
--- NOTE | 2021-04-30 12:50 | XR_ITS ---
WS: [id number] Portable AP upright chest, 04/30/2021 Clinical Data: dyspnea Comparison: Portable chest, 04/21/2019. Findings: No nodules, masses or effusions are seen. The heart is normal. The pulmonary vascularity is not increased. No pneumonia or pneumothorax is seen. There is a hiatal hernia behind the heart. XR/XR chest 1V portable [id number] Impression: Hiatal hernia.
--- NOTE | 2021-04-30 12:50 | ECG_ITS ---
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 Measurements Intervals [place] Rate: 71 P: 31 SC: 175 QRS: 22 QRSD: 105 T: 28 QT: 399 QTc: 435 Interpretive Statements SINUS RHYTHM NONSPECIFIC T-WAVE ABNORMALITY Compared to ECG 04/21/2019 16:15:19 No significant changes Electronically Signed On 05-01-2021 10:28:42 PIE CRUST MIXER by Erica Barnes M.D. [id number]
--- NOTE | 2021-04-30 12:57 | ED_ITS ---
HPI - General Adult General: Chief complaint: Dizziness Stated complaint: Bloodwork Time Seen by Provider: 04/30/21 12:50 History of Present Illness: Patient is a 65-year-old female with history of recurrent anemia presenting to emergency room with abnormal blood work. Patient reports that for the last 3-month, she has been feeling short of breath feeling shaky and lightheaded. Earlier yesterday, patient went to see Dr. Rodriguez who underwent blood work and noticed the patient had a hemoglobin of 6.7. Patient was told to come to the emergency room for evaluation. She denies any excessive NSAID use, denies any melena/hematochezia. Patient is on any anticoagulation. She has not noticed any hemoptysis, hematemesis, vaginal bleeding, hematuria, or other source of bleeding. Onset: chronic x 3 months Duration:ongoing Location:home Severity:moderate Associated symptoms: Reports dyspnea and malaise; Deny chest pain, nausea, rash, palpitations or vomiting Review of Systems Const: Reports: malaise and other; Denies: fever(s) or chills Eyes: Denies: change in vision ENMT: Denies: mouth pain Card: Denies: chest pain or palpitations Resp: Reports: dyspnea; Denies: non-productive cough GI: Denies: abdominal pain, nausea, vomiting or diarrhea : Denies: dysuria Musc: Denies: extremity pain Skin/Breast: Denies: rash or new lesions Neuro: Reports: other (+light-headedness); Denies: weakness in extremities Psych: Reports: other (Normal mood) Corey/Lymph: Denies: easy bruising PFSH ED PFSH: Medical History Hypercholesterolemia Thyroid disease Surgical History H/O esophagogastroduodenoscopy (07/25/19) very mild gastritis H/O knee surgery H/O: hysterectomy History of colonoscopy (~2018) normal- dr. negron Social History Smoking and tobacco status: never smoked Alcohol intake: never Household members: family Housing: House Physical Exam Const: COMMON NORMALS: alert HENMT: COMMON NORMALS: atraumatic HEAD & SCALP: atraumatic MOUTH: moist mucous membranes not abnormal Eye: COMMON NORMALS: EOMs intact bilaterally and conjunctivae normal CONJUNCTIVA: Yes conjunctivae normal Neck/C-Spine: COMMON NORMALS: full ROM and supple Resp: COMMON NORMALS: normal respiratory effort and clear to auscultation bilaterally AUSCULTATION: clear to auscultation bilaterally Cardio: COMMON NORMALS: regular rate RATE: regular rate GI: COMMON NORMALS: Soft to palpation and non-tender PALPATION: Yes Soft to palpation : OTHER: Exam supervised by Sandra Kuhn. Rectal exam without evidence of hemorrhoids, fissures. No prostatic enlargment, no tenderness of prostate. Stool guiac negative. Extremity: COMMON NORMALS: full ROM Neuro: SENSORIUM/ORIENTATION: Yes alert MOTOR EXAM: No Abnormal motor strength present and Other motor observations present (no focal motor deficits) Psych: COMMON NORMALS: speech normal SPEECH: Yes normal speech MOOD & AFFECT: Yes euthymic mood Course Vital Signs: Vital signs: Vital Signs Temperature 97.8 F 04/30/21 19:25 Pulse Rate 64 04/30/21 19:25 Respiratory Rate 16 04/30/21 19:25 Blood Pressure 178/99 04/30/21 19:25 Pulse Oximetry 98 04/30/21 19:25 MDM - General Adult Medical Decision Making 65-year-old female history of recurrent anemia presenting to the emergency room for concerns of abnormal blood work. Patient on exam has pale conjunctiva. Lungs appear to be clear bilaterally, 2+ upper extremity pulses. Hemoglobin of blank today. Rectal exam at show fecal occult negative brown stool. Unclear source of anemia at this time. Patient received 2 units of blood in the emergency room. Patient is given close follow with Dr. Murray. X-rays negative for any acute pathologies. EKG is nonischemic. Troponin appears to be within normal limit. I have given patient follow up with our counseling case manager to be seen by our outpatient Dr. Murray. Patient aware of a call from our counseling case manager to schedule for appointment(s) and verbalizes understanding of the importance of following up. Disposition: Discharge. Patient counseled regarding diagnostic impression, treatment plan. Patient given ED strict return precautions to return for continuation, worsening, or development of new symptoms. Instructed to f/u w/ PCP regarding symptoms today. Patient verbalized understanding. Patient is g iven strict return precautions for any signs of heavy bleeding or any new or concerning complaints. Lab Data : 04/30/21 13:35 04/30/21 13:35 Radiology Impressions Chest X-Ray 04/30/21 12:50 Impression: Hiatal hernia. Laboratory Results WBC 5.3 10^3/uL (4.0-10.0) 04/30/21 13:35 RBC 3.34 10^6/uL (4.1-5.3) L 04/30/21 13:35 Hgb 6.4 g/dL (11.5-15.3) L* 04/30/21 13:35 Hct 23.5 % (37.0-47.0) L 04/30/21 13:35 MCV 70.4 fl (81-99) L 04/30/21 13:35 MCH 19.2 pg (28.0-34.0) L 04/30/21 13:35 MCHC 27.2 g/dL (30.0-36.0) L 04/30/21 13:35 RDW 18.9 % (12.1-15.1) H 04/30/21 13:35 Plt Count 301 10^3/cmm (130-400) 04/30/21 13:35 MPV 10.1 fL (7.4-10.4) 04/30/21 13:35 Neut % (Auto) 58.5 % 04/30/21 13:35 Lymph % (Auto) 27.2 % 04/30/21 13:35 Waldo % (Auto) 10.1 % 04/30/21 13:35 Eos % (Auto) 2.1 % 04/30/21 13:35 Baso % (Auto) 2.1 % 04/30/21 13:35 Neut # (Auto) 3.08 10^3/uL (1.8-7.7) 04/30/21 13:35 Lymph # (Auto) 1.4 10^3/uL (0.8-4.8) 04/30/21 13:35 Waldo # (Auto) 0.5 10^3/uL (0.2-0.9) 04/30/21 13:35 Eos # (Auto) 0.1 10^3/uL (0.0-0.8) 04/30/21 13:35 Baso # (Auto) 0.1 10^3/uL (0.0-0.1) 04/30/21 13:35 Nucleated RBC % (auto) 0 % 04/30/21 13:35 Nucleated RBCs # 0.0 /100WBC 04/30/21 13:35 PT 13.20 SECONDS (12.1-14.9) 04/30/21 13:35 INR 0.97 (0.8-1.2) 04/30/21 13:35 APTT 24.5 SECONDS (23.9-36.7) 04/30/21 13:35 Sodium 137 mmol/L (136-145) 04/30/21 13:35 Potassium 4.1 mmol/L (3.5-5.1) 04/30/21 13:35 Chloride 103 mmol/L (98-107) 04/30/21 13:35 Carbon Dioxide 24 mmol/L (22-29) 04/30/21 13:35 Anion Gap 14.1 (5-19) 04/30/21 13:35 BUN 11 mg/dL (8-23) 04/30/21 13:35 Creatinine 0.9 mg/dL (0.5-0.9) 04/30/21 13:35 GFR Calculation 62.5 mL/min (90-130) L 04/30/21 13:35 Glucose 86 mg/dL (65-115) 04/30/21 13:35 Calculated Osmolality 283 mOsm/kg (285-295) L 04/30/21 13:35 Calcium 9.6 mg/dL (8.5-10.5) 04/30/21 13:35 Troponin T Gen 5 ng/L 13 ng/L (0-10) H 04/30/21 13:35 NT-Pro-B Natriuret Pep 184 pg/mL (0-125) H 04/30/21 13:35 Blood Type O Positive 04/30/21 13:35 Rho(D) Type Positive 04/30/21 13:35 Antibody Screen Negative 04/30/21 13:35 Crossmatch See Detail 04/30/21 13:35 Imaging Data Other Imaging: Radiologist's impression: [address] [place] [address] XRay Report Signed Patient: Sunshine Katz Unit #: [id number] : 1955 Age/Sex: 65 / F ADM Date: 04/30/21 Loc: ER Room/Bed: Attending Dr: Ordering Provider/Ordering MD: Philipp Mcfarlane MD Date of Service: 04/30/21 Procedure(s): XR chest 1V portable [id number] Accession Number(s): [id number] Report Number: [id number] WS: [id number] Portable AP upright chest, 04/30/2021 Clinical Data: dyspnea Comparison: Portable chest, 04/21/2019. Findings: No nodules, masses or effusions are seen. The heart is normal. The pulmonary vascularity is not increased. No pneumonia or pneumothorax is seen. There is a hiatal hernia behind the heart. XR/XR chest 1V portable [id number] Impression: Hiatal hernia. ? Dictated By: Hodan Nunes MD Signed By: Hodan uNnes MD Signed Date/Time: 04/30/21 1321 DD/ 1319 Discharge Plan Discharge Patient Disposition: Home Clinical Impression: Dyspnea, Fatigue Condition: Stable Prescriptions: No Action atorvastatin 20 mg tablet 20 mg PO QAM 0RF citalopram 40 mg tablet 40 mg PO QAM 0RF levothyroxine 50 mcg tablet 50 mcg PO QAM 0RF albuterol sulfate 90 mcg/actuation HFA aerosol inhaler 2 puff INHALATION Q4H PRN (Reason: Shortness Of Breath) 0RF temazepam 15 mg capsule 15 mg PO BEDTIME 0RF Max Mag Zinc Tab 1 tab PO DAILY 0RF Discharge Orders: Discharge ED (Routine); Ordered 04/30/21 Ordered By: Philipp Mcfarlane Referrals: Jimbo Murray MD [Primary Care Provider] - Discharge Diet: Advance as tolerated Discharge Activity: Increase activity as tolerated Patient Instructions: Anemia (ED) Activity Restrictions/Additional Instructions: Come back to the emergency room if your chest pain worsens, have any fever or chills, worsening shortness of breath, worsening exertional lightheadedness, or any new or concerning complaints. Follow-up with Dr. Murray this week for repeat blood work. Coding Level of Care Code ED Supervisor Communications And Signals for Chg Fwd Exam Comprehensive
[2021-04-30 13:47] LABS: Basophils # 0.1 10^3/uL (0.0-0.1); Basophils % 2.1 %; Eosinophils # 0.1 10^3/uL (0.0-0.8); Eosinophils % 2.1 %; Hematocrit 23.5 % (37.0-47.0); Lymphocytes # 1.4 10^3/uL (0.8-4.8); Lymphocytes % 27.2 %; Mean Corpuscular HGB Conc 27.2 g/dL (30.0-36.0); Mean Corpuscular Hemoglobin 19.2 pg (28.0-34.0); Mean Corpuscular Volume 70.4 fl (81-99); Mean Platelet Volume 10.1 fL (7.4-10.4); Monocytes # 0.5 10^3/uL (0.2-0.9); Monocytes % 10.1 %; Neutrophils # 3.08 10^3/uL (1.8-7.7); Neutrophils % 58.5 %; Nucleated Red Blood Cells % 0 %; Platelet Count 301 10^3/cmm (130-400); Red Blood Count 3.34 10^6/uL (4.1-5.3); Red Cell Distribution Width 18.9 % (12.1-15.1); White Blood Count 5.3 10^3/uL (4.0-10.0)
[2021-04-30 13:51] LABS: Hemoglobin 6.4 g/dL (11.5-15.3)
[2021-04-30 14:01] LABS: INR 0.97 (0.8-1.2); Partial Thromboplastin Time 24.5 SECONDS (23.9-36.7)
[2021-04-30 14:06] LABS: Troponin T (5th) Once 13 ng/L (0-10)
[2021-04-30 14:16] LABS: Anion Gap 14.1 (5-19); Blood Urea Nitrogen 11 mg/dL (8-23); Calcium 9.6 mg/dL (8.5-10.5); Carbon Dioxide 24 mmol/L (22-29); Chloride 103 mmol/L (98-107); Glomerular Filtration Rate 62.5 mL/min (90-130); Glucose 86 mg/dL (65-115); NT Pro B Type Natriuretic Pept 184 pg/mL (0-125); Osmolality Calculated 283 mOsm/kg (285-295); Potassium 4.1 mmol/L (3.5-5.1); Sodium 137 mmol/L (136-145)
[2021-04-30 15:24] VITALS: BP 143/88; PULSE 75; RESP 24; TEMP 35.8
[2021-04-30] MEDS: sodium chloride 0.9% 100 mL Bag 50 ML IV (15:27)
[2021-04-30 15:43] VITALS: BP 162/96; PULSE 76; RESP 18; O2SAT 100
[2021-04-30 17:46] VITALS: BP 158/87; PULSE 73; RESP 20; TEMP 36.3; O2SAT 98
[2021-04-30 18:06] VITALS: BP 167/69; PULSE 70; RESP 19; TEMP 36.6; O2SAT 97
[2021-04-30 19:25] VITALS: BP 178/99; PULSE 64; RESP 16; TEMP 36.6; O2SAT 98
--- NOTE | 2021-05-03 13:52 | DCPLANNER ---
manager quantitative had message to speak with patient about scheduling a follow up appointment with primary care physician. manager quantitative called patient at phone number [phone], unable to speak with patient at this time. A voicemail was left for patient to return shoe caser phone call.
== END 2021-04-30 19:27 | disposition home or self-care (01) ==
PROVIDERS: Emergency Provider Emergency Medicine; PCP Family Medicine
DX: R06.00 Dyspnea, unspecified (principal); R53.83 Other fatigue
CPT/HCPCS: 36430; 71045; 80048; 83880; 84484; 85025; 85610; 85730; 86850; 86900; 86920; 93005; 99284; P9016

== ENCOUNTER 2021-08-10 13:18 | Oncology outpatient (recurring) (ONCR) | payer MEDICARE, BC, SELFPAY | END 2021-08-10 23:59 | disposition home or self-care (01) | LOC: ONCMED 13:21 | PROVIDERS: PCP Family Medicine; Visit Provider Internal Medicine Hematology & Oncology | DX: D50.9 Iron deficiency anemia, unspecified (principal); E07.9 Disorder of thyroid, unspecified; E78.00 Pure hypercholesterolemia, unspecified | CPT/HCPCS: 85025; 99214; 99999 ==

== ENCOUNTER 2021-09-09 14:10 | Oncology outpatient (recurring) (ONCR) | payer MEDICARE, BC, SELFPAY ==
[2021-09-09 14:31] LABS: Basophils # 0.1 10^3/uL (0.0-0.1); Basophils % 1.4 %; Eosinophils # 0.2 10^3/uL (0.0-0.8); Eosinophils % 2.7 %; Hematocrit 37.8 % (37.0-47.0); Hemoglobin 11.9 g/dL (11.5-15.3); Lymphocytes # 1.7 10^3/uL (0.8-4.8); Lymphocytes % 26.4 %; Mean Corpuscular HGB Conc 31.5 g/dL (30.0-36.0); Mean Corpuscular Hemoglobin 25.5 pg (28.0-34.0); Mean Corpuscular Volume 81.1 fl (81-99); Mean Platelet Volume 10.5 fL (7.4-10.4); Monocytes # 0.6 10^3/uL (0.2-0.9); Monocytes % 9.8 %; Neutrophils # 3.81 10^3/uL (1.8-7.7); Neutrophils % 59.5 %; Nucleated Red Blood Cells % 0 %; Platelet Count 244 10^3/cmm (130-400); Red Blood Count 4.66 10^6/uL (4.1-5.3); Red Cell Distribution Width 16.4 % (12.1-15.1); White Blood Count 6.4 10^3/uL (4.0-10.0)
[2021-09-09 14:45] LABS: Ferritin 8 ng/mL (15-150); Iron 44 ug/dL (37-145); Percent Saturation 11.4 % (20-50); Total Iron Binding Capacity 383 mcg/dl; Unsaturated Iron Binding 339 ug/dL (112-347)
== END 2021-09-09 23:59 | disposition home or self-care (01) ==
LOC: ONCMED 14:11
PROVIDERS: PCP Family Medicine; Visit Provider Internal Medicine Hematology & Oncology
DX: D50.9 Iron deficiency anemia, unspecified (principal); E07.9 Disorder of thyroid, unspecified; E78.00 Pure hypercholesterolemia, unspecified
CPT/HCPCS: 82728; 83540; 83550; 85025; 99214

== ENCOUNTER 2021-10-01 09:00 | Oncology outpatient (recurring) (ONCR) | payer MEDICARE, BC, SELFPAY ==
[2021-09-23] MEDS: sodium chloride 0.9% 250 ML 75 ML IV (13:59)
[2021-09-23 14:01] VITALS: BP 133/83; PULSE 65; RESP 18; TEMP 36.7; O2SAT 96
[2021-09-23] MEDS: ferric carboxy (IVPB) 750 MG in sodium chloride 0.9% (100 ml) 100 ML 345 MG IV (14:05)
[2021-09-23 14:35] VITALS: BP 141/91; PULSE 78; RESP 18; TEMP 36.6; O2SAT 98
[2021-10-01 09:02] VITALS: BMI 34.6
[2021-10-01] MEDS: sodium chloride 0.9% 250 ML 75 ML IV (09:28)
[2021-10-01] MEDS: ferric carboxy (IVPB) 750 MG in sodium chloride 0.9% (100 ml) 100 ML 345 MG IV (09:29)
[2021-10-01 10:05] VITALS: BP 167/88; PULSE 60; RESP 18; TEMP 36; O2SAT 96
== END 2021-10-10 23:59 | disposition home or self-care (01) ==
PROVIDERS: PCP Family Medicine; Visit Provider Internal Medicine Hematology & Oncology
DX: D50.9 Iron deficiency anemia, unspecified (principal); Z79.899 Other long term (current) drug therapy
CPT/HCPCS: 96365; J1439; J7050

== ENCOUNTER 2021-10-29 10:37 | Outpatient (CLI) | payer MEDICARE, BC, SELFPAY ==
--- NOTE | 2021-10-29 10:45 | MM_ITS ---
WS: [id number] Bilateral screening 3D tomosynthesis digital mammogram, 10/29/2021 Clinical Data: SCREENING Comparison: 10/26/2020, 09/19/2019, 09/07/2018, 09/05/2017, 08/26/2016, 08/20/2015, 08/08/2014, 07/02/2013, 06/11, 06/27/2011, 05/24/2010, 04/27/2009, 03/10/2008, 03/08/2007, 02/28/2006. Findings: The breast parenchymal pattern shows fibroglandular tissue. No spiculated masses or clustered calcifi cations are seen. There are no secondary signs of carcinoma. There are scattered benign calcification s throughout the breasts. There are mole markers on the right breast. MM/[place] [id number] Impression: 1. Negative bilateral mammogram unchanged. 2. Recommend annual screening mammograms. BIRADS: 1-Negative FOLLOW UP: 1 Year Follow-up The CAD parimutuel ticket checker was used.
== END 2021-10-29 10:38 | disposition home or self-care (01) ==
LOC: RAD 10:38
PROVIDERS: PCP Family Medicine; Visit Provider Family Medicine
DX: Z12.31 Encounter for screening mammogram for malignant neoplasm of breast (principal)
CPT/HCPCS: 77063; 77067

== ENCOUNTER 2021-11-05 08:38 | Oncology outpatient (recurring) (ONCR) | payer MEDICARE, BC, SELFPAY ==
[2021-11-05 08:58] LABS: Basophils # 0.1 10^3/uL (0.0-0.1); Basophils % 1.6 %; Eosinophils # 0.1 10^3/uL (0.0-0.8); Eosinophils % 2.9 %; Hematocrit 44.1 % (37.0-47.0); Hemoglobin 14.2 g/dL (11.5-15.3); Lymphocytes # 1.2 10^3/uL (0.8-4.8); Lymphocytes % 24.1 %; Mean Corpuscular HGB Conc 32.2 g/dL (30.0-36.0); Mean Corpuscular Hemoglobin 28.5 pg (28.0-34.0); Mean Corpuscular Volume 88.4 fl (81-99); Mean Platelet Volume 10.7 fL (7.4-10.4); Monocytes # 0.4 10^3/uL (0.2-0.9); Monocytes % 8.2 %; Neutrophils # 3.09 10^3/uL (1.8-7.7); Neutrophils % 63.2 %; Nucleated Red Blood Cells % 0 %; Platelet Count 229 10^3/cmm (130-400); Red Blood Count 4.99 10^6/uL (4.1-5.3); Red Cell Distribution Width 20.1 % (12.1-15.1); White Blood Count 4.9 10^3/uL (4.0-10.0)
[2021-11-05 09:18] LABS: Ferritin 442 ng/mL (15-150); Iron 120 ug/dL (37-145); Percent Saturation 44.9 % (20-50); Total Iron Binding Capacity 267 mcg/dl; Unsaturated Iron Binding 147 ug/dL (112-347)
== END 2021-11-10 23:59 | disposition home or self-care (01) ==
PROVIDERS: PCP Family Medicine; Visit Provider Internal Medicine Hematology & Oncology
DX: D50.9 Iron deficiency anemia, unspecified (principal); E07.9 Disorder of thyroid, unspecified; E78.00 Pure hypercholesterolemia, unspecified
CPT/HCPCS: 36415; 82728; 83540; 83550; 85025; 99214

== ENCOUNTER 2022-02-09 10:30 | Oncology outpatient (recurring) (ONCR) | payer MEDICARE, BC, SELFPAY | END 2022-02-09 23:59 | disposition home or self-care (01) | PROVIDERS: PCP Family Medicine; Visit Provider Internal Medicine Hematology & Oncology | DX: D50.9 Iron deficiency anemia, unspecified (principal); Z79.899 Other long term (current) drug therapy | CPT/HCPCS: 36415; 82728; 83540; 83550; 85025; 99213; 99214 ==

== ENCOUNTER 2022-11-11 09:31 | Outpatient (CLI) | payer MEDICARE, BC, SELFPAY ==
--- NOTE | 2022-11-11 09:47 | MM_ITS ---
WS: [id number] BILATERAL SCREENING DIGITAL TOMOSYNTHESIS MAMMOGRAM WITH CAD HISTORY: SCREENING COMPARISON: 10/29/2021, 10/26/2020, 09/07/2018 and 09/19/2019 Bilateral CC and MLO views with tomosynthesis and synthetic mammography submitted. Computer aided det ection analyzed. Breast composition: There are scattered areas of fibroglandular density. No suspicious masses, microc alcifications or architectural distortion. Bilateral calcifications and asymmetries within each breas t. More prominent asymmetries in the RIGHT breast have been stable since at least 2019. IMPRESSION: MM/[place] [id number] BI-RADS: 2-Benign FOLLOW UP: 1 Year Follow-up
== END 2022-11-11 09:32 | disposition home or self-care (01) ==
PROVIDERS: PCP Electrodiagnostic Medicine; Visit Provider Electrodiagnostic Medicine
DX: Z12.31 Encounter for screening mammogram for malignant neoplasm of breast (principal)
CPT/HCPCS: 77063; 77067

== ENCOUNTER 2023-11-21 08:51 | Outpatient (CLI) | payer MEDICARE, BC, SELFPAY ==
--- NOTE | 2023-11-21 08:53 | MM_ITS ---
WS: [id number] BILATERAL 3D TOMOSYNTHESIS DIGITAL SCREENING MAMMOGRAPHY WITH CAD CLINICAL INFORMATION: SCREENING HISTORY: Screening mammogram. No current complaints. COMPARISON: 2022 TECHNIQUE: Bilateral CC and MLO views. FINDINGS: The breasts are composed of heterogeneous fibroglandular density tissue, which can limit the detectio n of small underlying mass lesions. No suspicious mass, asymmetry, calcifications, or architectural d istortion. No evidence of malignancy. Incidental lucent centered calcifications. MM/[place] [id number] IMPRESSION: DENSITY: The breasts are heterogeneously dense, which may obscure small masses. BI-RADS: 2 - Benign FOLLOW UP: 1 Year Follow-up Recommend return to annual screening mammography.
== END 2023-11-21 08:52 | disposition home or self-care (01) ==
LOC: RAD 08:52
PROVIDERS: PCP Electrodiagnostic Medicine; Visit Provider Electrodiagnostic Medicine
DX: Z12.31 Encounter for screening mammogram for malignant neoplasm of breast (principal); R92.333 Mammographic heterogeneous density, bilateral breasts; R92.1 Mammographic calcification found on diagnostic imaging of breast
CPT/HCPCS: 77063; 77067

== ENCOUNTER → 2024-09-03 08:13 | Outpatient (BNVA) | payer MEDICARE, BC, SELFPAY | PROVIDERS: PCP Electrodiagnostic Medicine; Referring Provider Electrodiagnostic Medicine; Visit Provider Nurse Practitioner Family | DX: L82.1 Other seborrheic keratosis (principal); L81.4 Other melanin hyperpigmentation; L73.8 Other specified follicular disorders; D22.5 Melanocytic nevi of trunk; L64.8 Other androgenic alopecia; L91.8 Other hypertrophic disorders of the skin; R20.9 Unspecified disturbances of skin sensation; R20.8 Other disturbances of skin sensation; R23.8 Other skin changes; L29.89 Other pruritus; Z78.9 Other specified health status; L53.8 Other specified erythematous conditions | CPT/HCPCS: 17110; 99203 ==

== ENCOUNTER 2024-10-01 10:02 | Outpatient (CLI) | payer MEDICARE, BC, SELFPAY ==
--- NOTE | 2024-10-01 | ECG_ITS ---
[facility] Test Date: 2024-10-01 Pat Name: Sunshine Katz Department: Room: Gender: Female Manager Child: : 1955 Requested By: Juma Rick Order Number: [id number] Abril MD: DEBBI DAVENPORT Interpretive Statements Lung unchanged pre/post procedure; Intraprocedure shortess of breath; Symptoms resoled by discharge NOTE: Please note that this is the electrocardiogram portion of the Lexiscan/Sestamibi stress test. The perfusion scan will be documented separately. DATA: Baseline heart rate was 53 beats per minute. Baseline blood pressure was 139/89 millimeters of mercury. Target heart rate was 150. Maximum heart rate achieved was 101. which was 67% of the predicted target heart rate. Maximum blood pressure was 150/89 millimeters of mercury. The reason for ending the test was completion of the protocol. The patient did not experience any symptoms. ELECTROCARDIOGRAM: BASELINE: Sinus bradycardia normal axis. Mild inferolateral ST-T flattening at the baseline noted EXERCISE: After Lexiscan injection, no significant ST-T changes suggestive of ischemic noted. No arrhythmia noted. CONCLUSION: Please note due to baseline abnormality of the EKG specificity and sensitivity of the EKG portion of LexiScan MIBI stress test will be low 1. EKG not suggestive of ischemia 2. Lexiscan injection unremarkable. 3. Perfusion scan will be documented separately Electronically Signed On 10-16-2024 18:57:29 CDT by DEBBI DAVENPORT [email or web address]
[2024-10-01 10:17] VITALS: BMI 31.8
--- NOTE | 2024-10-01 10:17 | NMCV_ITS ---
NM julianna perf SPECT r/s* [id number] Sunshine Katz Age: 68 Gender: F : 1955 Exam Date: 10/01/2024 11:00 Ordering Phys: Juma Rivera DO Technologist: LUIS Dave Exam Location: [facility] Indications: cp STRESS TEST Please see separate stress test report in [facility] for full findings IMAGE PROTOCOL Rest/Stress 1 Lexiscan Day Radiopharmaceutical Dose (mCi) Administration Site Administered by Rest: Tc-99m 10.6 IV LUIS Pratt Sestamibi Stress:Tc-99m 32.3 IV LUIS Pratt Sestamibi Rest: 01-Oct-2024 60 Discovery 630 Stress: 01-Oct-2024 30 Discovery 630 0.4mg Lexiscan. Images obtained in supine and prone position. SPECT RESULTS Technical Quality: Good Raw Data Analysis: Normal Image Corrections: No attenuation or motion correction applied Summed Stress Score: 3 Summed Rest Score: 1 Summed Difference Score: 2 PERFUSION FINDINGS SPECT images demonstrate homogeneous tracer distribution throughout the myocardium. FUNCTIONAL RESULTS (calculated via Gated SPECT) Stress Image LV EF (%): 97 Stress EDV (mL):58 TID: 0.95 Stress ESV (mL):2 FUNCTIONAL FINDINGS: There is normal left ventricular systolic function. IMPRESSIONS Myocardial perfusion imaging is normal. Flor Olvera MD (Electronically Signed) Final Date: 04 October 2024 09:51 S
[2024-10-01 11:40] VITALS: BP 122/61; PULSE 85
== END 2024-10-01 10:03 | disposition home or self-care (01) ==
LOC: CDL 10:03
PROVIDERS: PCP Electrodiagnostic Medicine; Visit Provider Electrodiagnostic Medicine
DX: R07.9 Chest pain, unspecified (principal)
CPT/HCPCS: 36415; 78452; 93017; 96374; A9500; J2785

== ENCOUNTER 2024-10-08 14:15 | Oncology outpatient (recurring) (ONCR) | payer MEDICARE, BC, SELFPAY ==
[2024-09-24 09:52] LABS: Hematocrit 31.4 % (36-47); Hemoglobin 9.50 g/dL (11.27-16.99); Mean Corpuscular HGB Conc 30.3 g/dL (30-55); Mean Corpuscular Hemoglobin 23.4 pg (27-33); Mean Corpuscular Volume 77.3 fl (85-98); Nucleated Red Blood Cells % 0 %; Platelet Count 297 10^3/cmm (157-399); Red Blood Count 4.06 10^6/uL (3.85-5.65); White Blood Count 5.25 10^3/uL (3.29-11.43)
[2024-09-24 10:11] LABS: Alanine Aminotransferase 13 U/L (0-33); Albumin Level 4.1 g/dL (3.5-5.2); Alkaline Phosphatase 102 U/L (35-105); Anion Gap 14.3 (5-19); Aspartate Amino Transferase 15 U/L (0-32); Blood Urea Nitrogen 12 mg/dL (8-23); Calcium 9.3 mg/dL (8.5-10.5); Carbon Dioxide 24 mmol/L (22-29); Chloride 104 mmol/L (98-107); Creatinine Clr Calc Pharmacy 52.9705; Ferritin 8 ng/mL (15-150); Globulin 2.9 g/dL (1.3-4.6); Glucose 84 mg/dL (65-115); Iron 24 ug/dL (37-145); Osmolality Calculated 285 mOsm/kg (285-295); Potassium 4.3 mmol/L (3.5-5.1); Sodium 138 mmol/L (136-145); Total Iron Binding Capacity 393 mcg/dl; Total Protein 7.0 g/dL (6.6-8.7); Unsaturated Iron Binding 369 ug/dL (112-347)
[2024-09-24 10:27] LABS: Vitamin B12 453 pg/mL (232-1245)
[2024-10-01 13:24] VITALS: BP 121/85; PULSE 81; TEMP 36.1; O2SAT 100
[2024-10-01] MEDS: ferric carboxy (PYXIS) 750 MG in sodium chloride 0.9% (100 ml) 100 ML 345 MG IV (14:25)
[2024-10-08 14:14] VITALS: BP 109/72; PULSE 57; TEMP 36.3; O2SAT 98
[2024-10-08] MEDS: ferric carboxy (PYXIS) 750 MG in sodium chloride 0.9% (100 ml) 100 ML 345 MG IV (14:39)
[2024-10-08 15:02] VITALS: BP 104/70; PULSE 73; O2SAT 96
== END 2024-10-10 23:59 | disposition home or self-care (01) ==
PROVIDERS: PCP Electrodiagnostic Medicine; Visit Provider Internal Medicine Medical Oncology
DX: D50.9 Iron deficiency anemia, unspecified; Z79.899 Other long term (current) drug therapy; Z53.9 Procedure and treatment not carried out, unspecified reason
CPT/HCPCS: 36415; 80053; 82607; 82728; 82746; 83540; 83550; 85025; 96365; 99214; J1439

== ENCOUNTER 2024-11-21 08:42 | Outpatient (CLI) | payer MEDICARE, BC, SELFPAY ==
--- NOTE | 2024-11-21 08:46 | MM_ITS ---
WS: [id number] BILATERAL SCREENING DIGITAL TOMOSYNTHESIS MAMMOGRAM WITH CAD HISTORY: SCREENING COMPARISON: 11/21/2023, 11/11/2022, 10/26/2020 and 10/29/2021 Bilateral CC and MLO views with tomosynthesis and synthetic mammography submitted. Computer aided detection analyzed. Breast composition: There are scattered areas of fibroglandular density. No suspicious masses, microcalcifications or architectural distortion. There are scattered asymmetries in each breast. There are also benign calcifications. Asymmetries in the upper outer quadrant of the LEFT breast have been stable since 2021 and 2020. No interval change. MM/MM scr BI tomosynthesis [id number] IMPRESSION: BI-RADS: 2 - Benign. FOLLOW UP: 1 Year Follow-up
== END 2024-11-21 08:43 | disposition home or self-care (01) ==
LOC: RAD 08:42
PROVIDERS: PCP Electrodiagnostic Medicine; Visit Provider Electrodiagnostic Medicine
DX: Z12.31 Encounter for screening mammogram for malignant neoplasm of breast (principal); R92.323 Mammographic fibroglandular density, bilateral breasts
CPT/HCPCS: 77063; 77067

== ENCOUNTER 2024-11-26 11:30 | Oncology outpatient (recurring) (ONCR) | payer MEDICARE, BC, SELFPAY ==
[2024-11-12] MEDS: ferric carboxy (PYXIS) 750 MG in sodium chloride 0.9% (100 ml) 100 ML 345 MG IV (13:59)
[2024-11-26 11:59] LABS: Hematocrit 40.7 % (36-47); Hemoglobin 13.20 g/dL (11.27-16.99); Mean Corpuscular HGB Conc 32.4 g/dL (30-55); Mean Corpuscular Hemoglobin 27.9 pg (27-33); Mean Corpuscular Volume 86.0 fl (85-98); Nucleated Red Blood Cells % 0 %; Platelet Count 227 10^3/cmm (157-399); Red Blood Count 4.73 10^6/uL (3.85-5.65); White Blood Count 4.89 10^3/uL (3.29-11.43)
[2024-11-26 12:19] LABS: Alanine Aminotransferase 35 U/L (0-33); Albumin Level 4.2 g/dL (3.5-5.2); Alkaline Phosphatase 123 U/L (35-105); Anion Gap 12.3 (5-19); Aspartate Amino Transferase 24 U/L (0-32); Blood Urea Nitrogen 13 mg/dL (8-23); Calcium 9.4 mg/dL (8.5-10.5); Carbon Dioxide 27 mmol/L (22-29); Chloride 104 mmol/L (98-107); Ferritin 906 ng/mL (15-150); Globulin 2.9 g/dL (1.3-4.6); Glucose 77 mg/dL (65-115); Iron 88 ug/dL (37-145); Osmolality Calculated 287 mOsm/kg (285-295); Potassium 4.3 mmol/L (3.5-5.1); Sodium 139 mmol/L (136-145); Total Iron Binding Capacity 237 mcg/dl; Total Protein 7.1 g/dL (6.6-8.7); Unsaturated Iron Binding 149 ug/dL (112-347)
[2024-11-26 12:33] LABS: Vitamin B12 856 pg/mL (232-1245)
== END 2024-12-10 23:59 | disposition home or self-care (01) ==
PROVIDERS: PCP Electrodiagnostic Medicine; Visit Provider Internal Medicine Medical Oncology
DX: D50.9 Iron deficiency anemia, unspecified; Z79.899 Other long term (current) drug therapy; Z53.9 Procedure and treatment not carried out, unspecified reason
CPT/HCPCS: 36415; 80053; 82607; 82728; 82746; 83540; 83550; 85025; 96365; 99213; J1439

== ENCOUNTER 2025-02-18 11:41 | Oncology outpatient (recurring) (ONCR) | payer MEDICARE, BC, SELFPAY ==
[2025-02-18 12:34] LABS: Hematocrit 39.0 % (36-47); Hemoglobin 12.80 g/dL (11.27-16.99); Mean Corpuscular HGB Conc 32.8 g/dL (30-55); Mean Corpuscular Hemoglobin 29.7 pg (27-33); Mean Corpuscular Volume 90.5 fl (85-98); Nucleated Red Blood Cells % 0 %; Platelet Count 242 10^3/cmm (157-399); Red Blood Count 4.31 10^6/uL (3.85-5.65); White Blood Count 4.71 10^3/uL (3.29-11.43)
[2025-02-18 12:56] LABS: Alanine Aminotransferase 23 U/L (0-33); Albumin Level 4.1 g/dL (3.5-5.2); Alkaline Phosphatase 99 U/L (35-105); Anion Gap 14.4 (5-19); Aspartate Amino Transferase 22 U/L (0-32); Blood Urea Nitrogen 15 mg/dL (8-23); Calcium 9.8 mg/dL (8.5-10.5); Carbon Dioxide 26 mmol/L (22-29); Chloride 104 mmol/L (98-107); Ferritin 416 ng/mL (15-150); Globulin 2.8 g/dL (1.3-4.6); Glucose 95 mg/dL (65-115); Iron 69 ug/dL (37-145); Osmolality Calculated 291 mOsm/kg (285-295); Potassium 4.4 mmol/L (3.5-5.1); Sodium 140 mmol/L (136-145); Total Iron Binding Capacity 248 mcg/dl; Total Protein 6.9 g/dL (6.6-8.7); Unsaturated Iron Binding 179 ug/dL (112-347)
[2025-02-18 13:10] LABS: Vitamin B12 1155 pg/mL (232-1245)
== END 2025-03-12 23:59 | disposition home or self-care (01) ==
PROVIDERS: PCP Electrodiagnostic Medicine; Visit Provider Internal Medicine Medical Oncology
DX: D50.9 Iron deficiency anemia, unspecified (principal); Z79.899 Other long term (current) drug therapy; Z53.9 Procedure and treatment not carried out, unspecified reason
CPT/HCPCS: 36415; 80053; 82607; 82728; 82746; 83540; 83550; 85025; 99214